=== PATIENT | male | born 1990 | race African-American/Black ===

== ENCOUNTER 2016-07-28 17:30 | Emergency (ER) | payer SELFPAY ==
[~2016-07-28] VITALS: Ht 175.3 cm; Wt 100.0 kg
[~2016-07-28 17:30] MED LIST: AMOXICILLIN500 MG PO; AUGMENTIN875TAB OR; NO HOME MEDS; TORADOL OR; ULTRAM50 M1 PO
[2016-07-28] MEDS ORDERED: FLEXERIL PO (18:27)
[2016-07-28] MEDS ORDERED: MOTRIN800 MG PO (18:27)
[2016-07-28 18:40] VITALS: BP 138/82
== END 2016-07-28 18:42 | disposition home or self-care (01) | DRG 605 ==
LOC: ED 17:30
DX: S70.312A Abrasion, left thigh, initial encounter (principal); F17.210 Nicotine dependence, cigarettes, uncomplicated; S80.212A Abrasion, left knee, initial encounter; S63.501A Unspecified sprain of right wrist, initial encounter; S93.401A Sprain of unspecified ligament of right ankle, initial encounter; V19.3XXA Pedal cyclist (driver) (passenger) injured in unspecified nontraffic accident, initial encounter

== ENCOUNTER 2020-01-27 17:29 | Emergency (ER) | payer SELFPAY ==
[~2020-01-27] VITALS: Ht 175.3 cm; Wt 85.0 kg
[~2020-01-27 17:29] MED LIST changes: +FLEXERIL PO; +MOTRIN800 MG PO
[2020-01-27] MEDS ORDERED: BACTRIM DS1 TAB PO (18:12)
[2020-01-27] MEDS ORDERED: KEFLEX500 MG PO (18:12)
[2020-01-27 18:21] VITALS: BP 142/77
== END 2020-01-27 18:25 | disposition home or self-care (01) | DRG 605 ==
LOC: ED 17:29
DX: S61.216A Laceration without foreign body of right little finger without damage to nail, initial encounter (principal); L03.011 Cellulitis of right finger; F17.200 Nicotine dependence, unspecified, uncomplicated; W26.8XXA Contact with other sharp object(s), not elsewhere classified, initial encounter

== ENCOUNTER 2020-02-27 16:14 | Emergency (ER) | payer SELFPAY ==
[~2020-02-27] VITALS: Ht 175.3 cm; Wt 113.0 kg
[~2020-02-27 16:14] MED LIST changes: +BACTRIM DS1 TAB PO; +KEFLEX500 MG PO
[2020-02-27] MEDS ORDERED: HYDROCO/APAP1 TA9 PO (18:48)
[2020-02-27] MEDS ORDERED: KEFLEX500 MG PO (18:48)
[2020-02-27 18:56] VITALS: BP 160/92
== END 2020-02-27 19:45 | disposition home or self-care (01) | DRG 951 ==
LOC: ED 16:14
DX: F17.200 Nicotine dependence, unspecified, uncomplicated (principal); S50.811A Abrasion of right forearm, initial encounter; S40.811A Abrasion of right upper arm, initial encounter; S60.511A Abrasion of right hand, initial encounter; S70.311A Abrasion, right thigh, initial encounter; S80.211A Abrasion, right knee, initial encounter; S90.415A Abrasion, left lesser toe(s), initial encounter; S90.812A Abrasion, left foot, initial encounter; S80.212A Abrasion, left knee, initial encounter; S60.512A Abrasion of left hand, initial encounter; S50.312A Abrasion of left elbow, initial encounter; S40.212A Abrasion of left shoulder, initial encounter; R55 Syncope and collapse; V86.56XA Driver of dirt bike or motor/cross bike injured in nontraffic accident, initial encounter; Y93.I9 Activity, other involving external motion; Y92.410 Unspecified street and highway as the place of occurrence of the external cause
CPT/HCPCS: J2060

== ENCOUNTER 2021-06-20 00:50 | Emergency (ER) | payer SELFPAY ==
[~2021-06-20] VITALS: Ht 175.3 cm; Wt 88.0 kg
[2021-06-20] VITALS (8 sets, daily range): BP systolic 96–133; BP diastolic 59–98
[~2021-06-20 00:50] MED LIST changes: +HYDROCO/APAP1 TA9 PO
[2021-06-20] MEDS ORDERED: MEDICAL MARIJUANA (01:24)
[2021-06-20 01:43] LABS: URINE BILIRUBIN - DIPSTICK NEGATIVE (NEGATIVE); URINE BLOOD DIPSTICK NEGATIVE (NEGATIVE); URINE COLOR YELLOW; URINE GLUCOSE - DIPSTICK >=1000 mg/dL (NEGATIVE); URINE KETONE NEGATIVE (NEGATIVE); URINE LEUK ESTERASE NEGATIVE (NEGATIVE); URINE PROTEIN - DIPSTICK NEGATIVE (NEG-TRACE); URINE UROBILINOGEN - DIPSTICK 0.2 E.U./dL (0.2)
[2021-06-20 01:52] LABS: URINE NITRITE - DIPSTICK NEGATIVE (Negative)
[2021-06-20 01:53] LABS: HEMATOCRIT 43.1 % (39.0-50.0); IMMATURE GRANULOCYTES 0.2 % (0.0-5.0); MEAN CELL VOLUME 80.4 fL CALC (80.0-100.0); MEAN CORPUSCULAR HGB 26.3 pG CALC (26.0-32.0); MEAN CORPUSCULAR HGB CONC 32.7 g/dL CAL (32.0-36.0); NEUT# 3.12 thou/uL (1.82-7.42); RED BLOOD COUNT 5.36 mill/uL (4.70-6.10)
[2021-06-20 02:05] LABS: ALKALINE PHOSPHATASE 104 u/l (38-126); AMYLASE 100 u/l (30-110); BUN 11 mg/dL (9-20); BUN/CREATININE RATIO 12 (12-20 (CALC)); CARBON DIOXIDE 26 mmol/l (22-30); CHLORIDE 101 mmol/l (95-108); CREATININE 0.9 mg/dL (0.7-1.3); ETHYL ALCOHOL 0 mg/dl (0-30); GFR > 60 ML/MIN (>=60 (CALC)); GFR FOR AFR.AMER. > 60 ML/MIN (>=60 (CALC)); LIPASE 345 u/l (23-300); POTASSIUM 3.7 mmol/l (3.5-5.1); SGOT/AST 21 u/l (17-59)
[2021-06-20 02:09] LABS: ANION GAP 13 (6-22 (CALC)); BILIRUBIN, TOTAL 0.8 mg/dL (0.0-1.4); SODIUM 136 mmol/l (137-146); TOTAL PROTEIN 6.6 g/dL (6.3-8.2)
[2021-06-20 02:12] LABS: HEMOGLOBIN 14.1 g/dl (14.0-18.0)
[2021-06-20 04:43] LABS: ALBUMIN 3.7 g/dL (3.2-5.0); ALKALINE PHOSPHATASE 110 u/l (38-126); ANION GAP 11 (6-22 (CALC)); BILIRUBIN, TOTAL 0.6 mg/dL (0.0-1.4); BUN 10 mg/dL (9-20); BUN/CREATININE RATIO 13 (12-20 (CALC)); CARBON DIOXIDE 25 mmol/l (22-30); CHLORIDE 106 mmol/l (95-108); CREATININE 0.8 mg/dL (0.7-1.3); GFR > 60 ML/MIN (>=60 (CALC)); GFR FOR AFR.AMER. > 60 ML/MIN (>=60 (CALC)); POTASSIUM 4.2 mmol/l (3.5-5.1); SGOT/AST 21 u/l (17-59); SODIUM 137 mmol/l (137-146); TOTAL PROTEIN 6.4 g/dL (6.3-8.2)
== END 2021-06-20 05:19 | disposition home or self-care (01) | DRG 313 ==
LOC: ED 00:50
DX: R07.9 Chest pain, unspecified (principal); R73.9 Hyperglycemia, unspecified

== ENCOUNTER 2024-03-05 07:33 | Observation (INO) | payer OTHER ==
[2024-03-05] VITALS (10 sets, daily range): BP systolic 105–159; BP diastolic 58–101
[~2024-03-05] VITALS: Ht 175.3 cm; Wt 86.0 kg
[~2024-03-05 07:33] MED LIST changes: +AMOX/K CLAV875 M1 PO; +MEDICAL MARIJUANA
--- NOTE | 2024-03-05 07:40 | NUR ---
PT BROUGHT BACK TO ER ROOM 13 VIA WHEELCHAIR, FAMILY AT SIDE
[2024-03-05] MEDS ORDERED: KETOROLAC TROMETHAMINE 30 MG/ML SDV IV ONE (08:20)
[2024-03-05] MEDS ORDERED: ISOVUE-300 (Iopamidol) 100 ML SDV IV ONE (08:20)
[2024-03-05] MEDS ORDERED: DOXYCYCLINE HYCLATE 100 MG in SODIUM CHLORIDE 0.9% 100 ML IV ONE (08:20)
[2024-03-05] MEDS ORDERED: PROMETHAZINE HCL 25 MG/ML AMP IV ONE (08:25)
[2024-03-05] MEDS ORDERED: MORPHINE SULFATE 4 MG/ML VIAL IV ONE (08:25)
[2024-03-05] MEDS ORDERED: SODIUM CHLORIDE 0.9% 1,000 ML IV ONE ×3 (08:25→15:23)
[2024-03-05 08:48] LABS: HEMATOCRIT 43.7 % (39.0-50.0); HEMOGLOBIN 14.9 g/dl (14.0-18.0); IMMATURE GRANULOCYTES 3.3 % (0.0-5.0); MEAN CELL VOLUME 78.6 fL CALC (80.0-100.0); MEAN CORPUSCULAR HGB 26.8 pG CALC (26.0-32.0); MEAN CORPUSCULAR HGB CONC 34.1 g/dL CAL (32.0-36.0); PLATELET COUNT 249 thou/uL (130-400); RED BLOOD COUNT 5.56 mill/uL (4.70-6.10); RED CELL DISTRI WIDTH 13.1 % (11.5-15.5)
[2024-03-05 08:53] LABS: MANUAL DIFFERENTIAL YES
[2024-03-05 09:00] LABS: ALBUMIN 3.9 g/dL (3.2-5.0); CREATININE 1.2 mg/dL (0.7-1.3); POTASSIUM 4.2 mmol/l (3.5-5.1); TOTAL PROTEIN 7.1 g/dL (6.3-8.2)
[2024-03-05] MEDS ORDERED: PROMETHAZINE HCL 25 MG in SODIUM CHLORIDE 0.9% 50 ML IV SCH (09:00)
[2024-03-05 09:19] LABS: BILIRUBIN, TOTAL 2.1 mg/dL (0.2-1.3)
[2024-03-05] MEDS ORDERED: PIPERACILLIN Sodium-Tazobactam 3.375 GM in SODIUM CHLORIDE 0.9% 100 ML IV ONE (09:20)
[2024-03-05 09:23] LABS: BAND 9 % (0-8)
[2024-03-05 09:24] LABS: PLATELET ESTIMATE NORMAL
--- NOTE | 2024-03-05 10:25 | NUR ---
Patient voided 1000mL clear yellow urine.
[2024-03-05] MEDS ORDERED: VANCOMYCIN HCL 1 GM in SODIUM CHLORIDE 0.9% 250 ML IV ONE (11:45)
--- NOTE | 2024-03-05 12:55 | NUR ---
Patient transported to OR
[2024-03-05] MEDS ORDERED: LIDOcaine HCl 1% (Local Anesth.) 20 ML VIAL ONE (13:22)
[2024-03-05] MEDS ORDERED: DEXTROSE 250 ML IV PRN (13:40)
[2024-03-05] MEDS ORDERED: ONDANSETRON HCl 4 MG/2 ML SDV IV PRN (13:40)
[2024-03-05] MEDS ORDERED: SODIUM CHLORIDE 0.9% 1,000 ML IV PRN (13:40)
[2024-03-05] MEDS ORDERED: HYDROmorphone HCL 2 MG/AMP IV PRN (13:40)
[2024-03-05] MEDS ORDERED: oxyCODONE 5MG/ ACETAMINOPHEN 325MG TAB PO PRN (13:40)
[2024-03-05] MEDS ORDERED: ACETAMINOPHEN 100 ML IV ONE (14:48)
[2024-03-05] MEDS ORDERED: KETOROLAC TROMETHAMINE 30 MG/ML SDV ONE (14:48)
[2024-03-05] MEDS ORDERED: HYDROmorphone HCL 2 MG/AMP ONE (15:01)
[2024-03-05] MEDS ORDERED: PROPOFOL 200 MG/20 ML VIAL IV ONE (15:18)
[2024-03-05] MEDS ORDERED: LIDOCAINE HCL 2% 2ML SDV IV ONE (15:18)
[2024-03-05] MEDS ORDERED: STERILE WATER FOR IRRIGATION 1,000 ML BTL IR ONE (15:19)
[2024-03-05] MEDS ORDERED: SODIUM CHLORIDE 1,000 ML BTL IR ONE (15:19)
--- NOTE | 2024-03-05 15:51 | NUR ---
PT ARRIVED TO UNIT VIA [facility].
--- NOTE | 2024-03-05 16:03 | NUR ---
I WAS CONTACTED BY THE [facility] IN REFERENCE TO THIS PATIENT'S POSSIBLE TRANSFER TO [facility]. I SPOKE WITH J CARLOS AT 1603 HRS. J CARLOS ADVISED THAT THE PATIENT WAS ACCEPTED BY DR STOKES AT 1515 HRS. J CARLOS PROVIDED A ROOM NUMBER OF 2 NORTH, ROOM 231-B. J CARLOS FURTHER PROVIDED A PHONE NUMBER FOR [id number] REPORT. I THEN CONTACTED [employer] [facility] TO SET UP GROUND TRANSPORT TO [facility]. I SPOKE WITH LISA AT 1647 HRS. LISA PROVIDED AN ETA OF 1710 HRS.
--- NOTE | 2024-03-05 16:05 | NUR ---
PT IS AOX4, RESPIRATIONS ARE EVEN AND UNLABORED ON ROOM AIR, LUNGS ARE CLEAR THROUGHOUT, BOWEL SOUNDS ARE HYPOACTIVE BYT PRESENT IN ALL 4 QYADRANTS. LEFT KNEE DRESSING IS CLEAN, DRY, INTACT, LEFT PEDAL PULSE IS WEAK BUT PALPABLE TO TOUCH, RIGHT PEDAL PULSES PALPABLE TO TOUCH, PT ALSO HAS A FOREHEAD LACERATION MEASURING 4.5CM THAT IS CLOSE, CLEAN, DRY, INTACT, DENIES PAIN AT THIS TIME.
[2024-03-05] MEDS ORDERED: INSULIN LISPRO 100 UNITS/ML ML SC SCH (17:00)
--- NOTE | 2024-03-05 17:00 | NUR ---
CALLED, REPORT GIVEN TO NURSE AT [facility].
--- NOTE | 2024-03-05 17:25 | NUR ---
PT LEFT THE FLOOR VIA [facility] WITH BELONGINGS IN HAND.
[2024-03-05] MEDS ORDERED: PIPERACILLIN Sodium-Tazobactam 3.375 GM in SODIUM CHLORIDE 0.9% 100 ML IV SCH (18:00)
[2024-03-05] MEDS ORDERED: KETOROLAC TROMETHAMINE 15 MG/ML SDV IV SCH (20:00)
== END 2024-03-05 17:25 | DRG 502 ==
LOC: ED 07:33 → ED-I 12:05 → ED 12:14 → MS2 12:15
PROVIDERS: Emergency Medicine; ADMIT Surgery; ATTEND Surgery
PROC: 0KBR0ZZ Excision of Left Upper Leg Muscle, Open Approach (ICD-10-PCS; principal; 2024-03-05)
DX: M72.6 Necrotizing fasciitis (principal); S71.112A Laceration without foreign body, left thigh, initial encounter; V89.2XXA Person injured in unspecified motor-vehicle accident, traffic, initial encounter; E11.9 Type 2 diabetes mellitus without complications
CPT/HCPCS: J0131; J1171; J1815; J2543; Q9967